=== PATIENT | female | born 1990 | race African-American/Black ===

== ENCOUNTER 2022-03-23 11:57 | Emergency (ER) | payer OTHER, SELFPAY ==
[2022-03-23 14:01] LABS: Protime INR 0.97
[2022-03-23 14:02] LABS: Absolute Lymphocytes (CBC) 1.6 K/uL (0.7-4.9); Hematocrit 38.7 % (36.0-45.0); Lymphocytes % 24.3 % (15.3-44.8); MPV 9.5 fL (7.6-11.3)
[2022-03-23 14:19] LABS: Potassium 4.6 mmol/L (3.5-5.1)
--- NOTE | 2022-03-23 15:14 | RAD REPORT ---
EXAM DESCRIPTION: CT - CTFBWCON CLINICAL HISTORY: Maxillary/facial abscess COMPARISON: No comparisons TECHNIQUE: Axial 2 mm thick images of the face were obtained with sagittal and coronal reconstructio n images. All CT scans are performed using dose optimization technique as appropriate and may include automated exposure control or mA/KV adjustment according to patient size. FINDINGS: Moderate left-sided facial swelling inflammation is seen. There is a large dental nagi and a left posterior mandibular molar with 6 mm periapical abscess pres ent. No definitive odontogenic abscess seen. IMPRESSION: Moderate left-sided facial bone swelling likely related to above detailed left molar den aashish issue.
[2022-03-23] MEDS ORDERED: CLINDAMYCIN 600MG/D5W 600 MG/50 ML BAG IV ONE (15:38)
[2022-03-23 15:58] LABS: Urine Blood 3+ (Negative); Urine Glucose Negative (Negative); Urine Protein Negative (Negative); Urine pH 7.5 (5.0-7.0)
[2022-03-23] MEDS ORDERED: LIDOCAINE 1% MPF 5 ML VIAL ONE (16:07)
[2022-03-23] MEDS ORDERED: MORPHINE 4 MG/ML SYR ONE (16:13)
--- NOTE | 2022-03-23 16:29 | ER ---
Nurse's Notes [facility] Name: Luis Carrera Age: 31 yrs Sex: Female : 1990 Arrival Date: 03/23/2022 Time: 12:00 Bed 2 Private MD: Diagnosis: Disorder of teeth and supporting structures, unspecified Presentation: 03/23 12:43 Chief complaint: Patient states: woke up this morning with Left sided facial swelling; vg1 states 'im not too sure if its a tooth or my gums". Coronavirus screen: Vaccine status: Patient reports being unvaccinated. Client denies travel out of the [place] in the last 14 days. Ebola Screen: Patient denies exposure to infectious person. Patient denies travel to an Ebola-affected area in the 21 days before illness onset. Initial Sepsis Screen: Does the patient meet any 2 criteria? No. Patient's initial sepsis screen is negative. Does the patient have a suspected source of infection? No. Patient's initial sepsis screen is negative. Risk Assessment: Do you want to hurt yourself or someone else? Patient reports no desire to harm self or others. Onset of symptoms was March 23, 2022. 12:43 Method Of Arrival: Ambulatory vg1 12:43 Acuity: JENNIFER 4 vg1 Triage Assessment: 12:44 General: Appears uncomfortable, Behavior is calm, cooperative. Pain: Complains of pain vg1 in left cheek and left jaw Pain currently is 4 out of 10 on a pain scale. Respiratory: Airway is patent Respiratory effort is even, unlabored. Historical: - Allergies: 12:44 No Known Allergies; vg1 - Home Meds: 12:44 None [Active]; vg1 - PMHx: 12:44 None; vg1 - Immunization history:: Client reports having NOT received the Covid vaccine. - Social history:: Smoking status: Patient denies any tobacco usage or history of. Screenin:30 Abuse screen: Denies threats or abuse. Denies injuries from another. Nutritional jl7 screening: No deficits noted. Tuberculosis screening: No symptoms or risk factors identified. Fall Risk IV access (20 points). Total Greene Fall Scale indicates No Risk (0-24 pts). Assessment: 15:30 General: Appears in no apparent distress. uncomfortable, Behavior is calm, cooperative, jl7 appropriate for age. Pain: Complains of pain in left jaw and left cheek Pain currently is 4 out of 10 on a pain scale. Neuro: [place] Agitation-Sedation Scale (RASS): 0 - Alert and Calm Level of Consciousness is awake, alert, obeys commands, Oriented to person, place, time, situation. Cardiovascular: Patient's skin is warm and dry. Respiratory: Airway is patent Respiratory effort is even, unlabored, Respiratory pattern is regular, symmetrical. Derm: Skin is pink, warm \\T\\ dry. Musculoskeletal: Swelling present in left jaw and left cheek. Vital Signs: 12:43 BP 121 / 72; Pulse 70; Resp 16; Temp 99.1(TE); Pulse Ox 99% ; Weight 63.5 kg; Height 5 vg1 ft. 0 in. (152.40 cm); Pain 4/10; 17:03 BP 118 / 70; Pulse 69; Resp 15; Temp 97.5; Pulse Ox 99% ; jl7 12:43 Body Mass Index 27.34 (63.50 kg, 152.40 cm) vg1 ED Course: 12:00 Patient arrived in ED. as 12:15 Eyal Kelley PA is PHCP. cp 12:15 Ru Guaman MD is Attending Physician. cp 12:44 Triage completed. vg1 12:44 Arm band placed on. vg1 13:30 Inserted saline lock: 20 gauge in right antecubital area, using aseptic technique. eh3 13:30 Initial lab(s) drawn, by tn, sent to lab. jl7 15:04 CT Facial Bones W/ Con \\T\\ Mpr In Process Unspecified. EDMS 15:22 Adele Quintanilla, DEMOND is Primary Nurse. jl7 15:22 Patient placed in an exam room, on a stretcher. ll1 15:30 Patient has correct armband on for positive identification. Bed in low position. Call jl7 light in reach. Side rails up X 1. Pulse ox on. NIBP on. 15:30 No provider procedures requiring assistance completed. jl7 16:27 Rob Ramon DDS is Referral Physician. cp 17:11 IV discontinued, intact, bleeding controlled, No redness/swelling at site. Pressure jl7 dressing applied. Administered Medications: 15:43 Drug: Clindamycin 600 mg Route: IVPB; Infused Over: 30 mins; Site: right antecubital; jl7 Medication: 15:30 VIS not applicable for this client. jl7 Outcome: 16:28 Discharge ordered by . rossana 17:11 Discharged to home ambulatory. jl7 17:11 Condition: stable 17:11 Discharge instructions given to patient, Instructed on discharge instructions, follow up and referral plans. medication usage, Demonstrated understanding of instructions, follow-up care, medications, Prescriptions given X 2. 17:11 Patient left the ED. jl7 Signatures: Dispatcher [employer] EDMS Indigo Reyes Corey, Adele Slaughter cp, RN RN jl7 Josephine Tamayo RN RN vg1 Evaristo Jefferson, RN RN ll1 Christie Arriaga [facility] Corrections: (The following items were deleted from the chart) 14:25 14:24 Inserted saline lock: 20 gauge in right antecubital area, using aseptic eh3 technique. 3 17:03 15:30 BP 118 / 70; Pulse 69bpm; Resp 15bpm; Pulse Ox 99%; Temp 97.5F; jl7 jl7 17:11 15:30 IV discontinued, intact, bleeding controlled, No redness/swelling at site. jl7 Pressure dressing applied, jl7
--- NOTE | 2022-03-23 16:29 | EDPHYS ---
Physician Documentation [facility] Name: Luis Carrera Age: 31 yrs Sex: Female : 1990 Arrival Date: 03/23/2022 Time: 12:00 Bed 2 Private MD: ED Physician Ru Guaman HPI: 03/23 13:00 This 31 yrs old Black Female presents to ER via Ambulatory with complaints of Facial cp Swelling. 13:00 The problem is located in the left side of face. cp 13:00 Onset: The symptoms/episode began/occurred this morning. Associated signs and symptoms: cp Pertinent negatives: anorexia, dysphagia, fever, inability to eat, vomiting. Patient reports she woke up this morning and noticed left side of face was swollen. Mild pain to area and minimal tooth pain. Historical: - Allergies: 12:44 No Known Allergies; vg1 - Home Meds: 12:44 None [Active]; vg1 - PMHx: 12:44 None; vg1 - Immunization history:: Client reports having NOT received the Covid vaccine. - Social history:: Smoking status: Patient denies any tobacco usage or history of. ROS: 13:05 Constitutional: Negative for body aches, chills, fever, poor PO intake. cp 13:05 Cardiovascular: Negative for chest pain. cp 13:05 Eyes: Negative for injury, pain, redness, and discharge. cp 13:05 ENT: Negative for drainage from ear(s), ear pain, sore throat, difficulty swallowing, difficulty handling secretions. 13:05 Respiratory: Negative for cough, shortness of breath, wheezing. 13:05 Abdomen/GI: Negative for abdominal pain, vomiting, diarrhea, constipation. 13:05 Skin: Positive for swelling, of the left facial cheek. 13:05 Neuro: Negative for altered mental status, headache, weakness. 13:05 All other systems are negative. Exam: 13:10 Constitutional: The patient appears in no acute distress, alert, awake, comfortable, cp non-toxic, well developed, well nourished. 13:10 Head/face: Noted is swelling, that is mild, of the left cheek, tenderness, that is cp mild, of the left cheek. 13:10 Eyes: Periorbital structures: appear normal, Conjunctiva: normal, no exudate, no injection, Sclera: no appreciated abnormality, Lids and lashes: appear normal, bilaterally. 13:10 ENT: External ear(s): are unremarkable, Ear canal(s): are normal, clear, TM's: dullness, bilaterally, Nose: is normal, Mouth: Lips: moist, Oral mucosa: pink and intact, moist, Posterior pharynx: Airway: no evidence of obstruction, patent, Tonsils: are normal in appearance, Uvula: midline, swelling, is not appreciated, erythema, is not appreciated, exudate, is not appreciated, Dental exam: abscess, is not appreciated, dental caries, that is mild, diffusely, gum swelling, not appreciated, pain, that is mild, specifically in the upper left first molar (#14), Voice: is normal. 13:10 Neck: ROM/movement: is normal, is supple, without pain, no range of motions limitations, no nuchal rigidity, Lymph nodes: lymphadenopathy is appreciated, anterior cervical nodes. 13:10 Chest/axilla: Inspection: normal. 13:10 Cardiovascular: Rate: normal, Rhythm: regular. 13:10 Respiratory: the patient does not display signs of respiratory distress, Respirations: normal, no use of accessory muscles, no retractions, labored breathing, is not present, Breath sounds: are clear throughout, no decreased breath sounds, no stridor, no wheezing. 13:10 Abdomen/GI: Exam negative for discomfort, distension, guarding, Inspection: abdomen appears normal. 13:10 Neuro: Orientation: to person, place \T\ time. Mentation: is normal. Vital Signs: 12:43 BP 121 / 72; Pulse 70; Resp 16; Temp 99.1(TE); Pulse Ox 99% ; Weight 63.5 kg; Height 5 vg1 ft. 0 in. (152.40 cm); Pain 4/10; 17:03 BP 118 / 70; Pulse 69; Resp 15; Temp 97.5; Pulse Ox 99% ; jl7 12:43 Body Mass Index 27.34 (63.50 kg, 152.40 cm) vg1 MDM: 13:00 Differential diagnosis: dental caries, dental abscess, cellulitis. 15:25 Patient medically screened. 15:59 Physician consultation: Rob Ramon DDS was called at 15:59, left message on voicemail. 16:27 Data reviewed: vital signs, nurses notes, lab test result(s), radiologic studies, CT cp scan. 16:27 Counseling: I had a detailed discussion with the patient and/or guardian regarding: the cp historical points, exam findings, and any diagnostic results supporting the discharge/admit diagnosis, lab results, radiology results, the need for outpatient follow up, for definitive care, a dentist, to return to the emergency department if symptoms worsen or persist or if there are any questions or concerns that arise at home. Response to treatment: the patient's symptoms have mildly improved after treatment, and as a result, I will discharge patient. ED course: VSS. Patient appears non-toxic and no signs of respiratory distress. Will discharge to home for continued monitoring. 03/23 12:53 Order name: CBC with Diff; Complete Time: 15:54 cp 03/23 15:54 Interpretation: Reviewed. cp 03/23 12:53 Order name: BMP; Complete Time: 15:54 cp 03/23 12:53 Order name: PT-INR; Complete Time: 15:54 cp 03/23 12:53 Order name: CT Facial Bones W/ Con \T\ Mpr; Complete Time: 15:54 cp 03/23 15:59 Order name: Urine Dipstick-Ancillary EDMS 03/23 16:39 Order name: Urine --Ancillary (enter results) eb 03/23 12:53 Order name: IV; Complete Time: 14:23 cp 03/23 12:53 Order name: Urine Dipstick-Ancillary (obtain specimen); Complete Time: 16:23 cp 03/23 12:53 Order name: Urine Test (obtain specimen); Complete Time: 16:23 cp 03/23 15:56 Order name: PO challenge: crackers and juice; Complete Time: 16:23 cp Administered Medications: 15:43 Drug: Clindamycin 600 mg Route: IVPB; Infused Over: 30 mins; Site: right antecubital; jl7 Disposition: 17:55 Co-signature as Attending Physician, Ru Guaman MD I agree with the assessment and kdr plan of care. Disposition Summary: 03/23/22 16:28 Discharge Ordered Location: Home cp Problem: new cp Symptoms: have improved cp Condition: Stable cp Diagnosis - Disorder of teeth and supporting structures, unspecified cp Followup: cp - With: Rob Ramon DDS - When: 2 - 3 days - Reason: Recheck today's complaints Discharge Instructions: - Discharge Summary Sheet cp - Dental Abscess cp Forms: - Medication Reconciliation Form cp - Thank You Letter cp - Antibiotic Education cp - Prescription Opioid Use cp Prescriptions: - Clindamycin HCl 300 mg Oral Capsule - take 1 capsule by ORAL route every 6 hours for 10 days; 40 capsule; Refills: 0, cp Product Selection Permitted - Ibuprofen 800 mg Oral Tablet - take 1 tablet by ORAL route every 8 hours As needed take with food; 30 tablet; cp Refills: 0, Product Selection Permitted Signatures: Dispatcher [employer] EDRu Fam MD MD kdr Eyal Kelley PA PA cp Leal, Jahala, RN RN jl7 Josephine Tamayo RN RN vg1
[2022-03-23 17:38] VITALS: O2SAT 99
[2022-03-23 17:39] VITALS: BP 118/70; TEMP 97.5
== END 2022-03-23 17:11 | disposition home or self-care (01) ==
LOC: ER 11:57
DX: K08.89 Other specified disorders of teeth and supporting structures (principal)
CPT/HCPCS: 36415; 70487; 76377; 80048; 81003; 81025; 85025; 85610; 96374; 99284; Q9967